=== PATIENT | male | born 1965 | race Caucasian/White ===

== ENCOUNTER 2017-03-03 17:45 | Observation (INO) | payer OTHER ==
[2017-03-03] MEDS ORDERED: ONDANSETRON *ODT* 4 MG TABLET SL ONE (18:26)
[2017-03-03] MEDS ORDERED: MECLIZINE HCL 25 MG TABLET (FP) PO ONE ×2 (18:26→20:07)
[2017-03-03] MEDS ORDERED: SODIUM CHLORIDE 1,000 ML IV STA (18:27)
[2017-03-03] MEDS ORDERED: MECLIZINE HCL 25 MG TABLET (FP) ONE ×2 (18:29→19:56)
[2017-03-03] MEDS ORDERED: ONDANSETRON *ODT* 4 MG TABLET ONE (18:29)
--- NOTE | 2017-03-03 18:30 | PDOC ---
History of Present Illness - General History Source: Patient, Family Exam Limitations: No Limitations - History of Present Illness Initial Comments: 03/03/17 18:43 The patient is a 52 year old male, with a significant past medical history of hypertension, who presents to the emergency department with, dizziness and nausea with multiple episodes of emesis beginning approx. one day ago. The patient reports that yesterday while driving he began to feel dizzy and nauseous. The patient reports vomiting 1x (non bloody, non bilious) and going to [facility] for evaluation of the continuing dizziness. The patient reports having a CAT scan, CXR and blood work done and states all results were normal. The patient reports being prescribed Meclizine at the time of discharge from the hospital with mild relief. The patient reports that today approx. 3 hours ago he took the Meclizine medication and became dizzy. The patient reports vomiting once more and states the nausea went away after vomiting. However, the dizziness is continuing. The patient reports the dizziness as a room spinning sensation. The patient reports his last meal (cereal) was around 3pm today prior to vomiting. He denies recent cold-like symptoms or hearing changes. He denies recent abdominal pain or cramping. He denies chest pain, palpitations, or blurry vision. He denies shortness of breath, He denies any recent fevers, chills, or headache. He denies any recent, diarrhea or constipation. Allergies: NKA Past surgical history: None reported. Social History: Nonsmoker. Occasional EtOH use. <CorderoTyrel - Last Filed: 03/03/17 18:52> - History of Present Illness Initial Comments: 03/03/17 18:33 Patient was sudden onset of labyrinthine symptoms last night while driving. Seen at another hospital. Complete blood work and CAT scan of the brain, as well as EKG and cardiac enzymes, were performed, which showed no abnormalities other than a mildly elevated blood sugar. His blood pressure was also not to moderately elevated at the time. Physical exam: Alert and oriented well-developed well-nourished no acute distress at rest. Vertigo and nausea easily induced by head movement or change of position. Afebrile, vital signs stable except for mildly elevated blood pressure. The patient is on blood pressure medication Head atraumatic. PERRLA 4 mm, fundi benign with sharp disc margins and good central venous pulsations. ENT clear Neck supple without bruit mass or nodes Chest clear. No wheezes rales or rhonchi. Full breath sounds bilaterally CV S1 and S2 distant without murmur rub or gallop pulses full and symmetric no JVD or edema no bruits Abdomen soft nontender without mass or organomegaly. Bowel sounds normal Extremities no CCE Skin clear, no rash, adequate turgor and wet mucous membranes Neurological C2 to 12 intact. Strength full and symmetric. No focal sensory or motor deficits. Gait is mildly impaired due to vertigo. As noted above, vertigo and nausea reducible by change of position or head movement. Impression: Labyrinthitis, acute Plan: To control the nausea with sublingual Zofran and other symptoms with meclizine. Observe and referred to ENT if no improvement. <Augustus Thorpe - Last Filed: 03/04/17 07:35> - General Chief Complaint: Nausea/Vomiting Stated Complaint: VOMITING, DIZZINESS Time Seen by Provider: 03/03/17 18:25 Past History <Tyrel Cordero - Last Filed: 03/03/17 18:52> - Past Medical History COPD: No HTN: Yes - Suicide/Smoking/Psychosocial Hx Smoking History: Never smoked <Augustus Thorpe - Last Filed: 03/04/17 07:35> - Past Medical History Allergies/Adverse Reactions: Allergies Allergy/AdvReac Type Severity Reaction Status Date / Time No Known Allergies Allergy Verified 03/03/17 17:57 Home Medications: Ambulatory Orders Losartan Potassium 100 mg PO DAILY 03/03/17 Meclizine HCl 25 mg PO ASDIR 03/03/17 Ondansetron [Zofran *Odt*] 8 mg SL TID PRN #20 od.tablet 03/03/17 Review of Systems - Review of Systems Comments:: 03/03/17 18:43 CONSTITUTIONAL: Absent: fever, no chills, no fatigue EYES: Absent: visual changes ENT: Absent: ear pain, no sore throat CARDIOVASCULAR: Absent: chest pain, no palpitations RESPIRATORY: Absent: cough, no SOB GI: Present: +Nausea. +Vomiting. Absent: abdominal pain, no constipation, no diarrhea GENITOURINARY: Absent: dysuria, no frequency, no hematuria MUSKULOSKELETAL: Absent: back pain, no arthralgia, no myalgia SKIN: Absent: rash NEURO: Present: +Dizziness. Absent: headache <Tyrel Cordero - Last Filed: 03/03/17 18:52> *Physical Exam - Vital Signs Last Vital Signs Temp Pulse Resp BP Pulse Ox 98.2 F 67 18 148/87 96 03/03/17 17:45 03/03/17 17:45 03/03/17 17:45 03/03/17 17:45 03/03/17 17:45 <Tyrel Cordero - Last Filed: 03/03/17 18:52> ED Treatment Course - Medications Given in the ED: ED Medications Discontinued Medications Generic Name Dose Route Start Last Admin Trade Name Freq PRN Reason Stop Dose Admin Ondansetron HCl 8 mg 03/03/17 18:26 03/03/17 18:30 Zofran Odt - SL 03/03/17 18:27 8 mg ONCE ONE Administration <Tyrel Cordero - Last Filed: 03/03/17 18:52> - LABORATORY CBC & Chemistry Diagram: 03/03/17 21:05 03/03/17 21:05 <Augustus Thorpe - Last Filed: 03/04/17 07:35> Medical Decision Making - Medical Decision Making The patient was treated with sublingual Zofran. Nausea subsided. Signed out to Dr. Gonzalez at 7 PM pending trial of meclizine and further medical evaluation and treatment. <Augustus Thorpe - Last Filed: 03/04/17 07:35> *DC/Admit/Observation/Transfer - Attestations Scribe Attestion: 03/03/17 18:44 Documentation prepared by Tyrel Cordero, acting as medical economics consultant for Augustus Thorpe MD. <Tyrel Cordero - Last Filed: 03/03/17 18:52> - Discharge Dispostion Admit: No <Augustus Thorpe - Last Filed: 03/04/17 07:35> Diagnosis at time of Disposition: Vertigo Acute labyrinthitis Qualifiers: Laterality: unspecified laterality Qualified Code(s): H83.09 - Labyrinthitis, unspecified ear Vomiting Qualifiers: Vomiting type: unspecified Vomiting Intractability: non-intractable Nausea presence: with nausea Qualified Code(s): R11.2 - Nausea with vomiting, unspecified - Discharge Dispostion Condition at time of disposition: Improved
--- NOTE | 2017-03-03 19:41 | PDOC ---
*Physical Exam - Vital Signs Last Vital Signs Temp Pulse Resp BP Pulse Ox 98.2 F 67 18 148/87 96 03/03/17 17:45 03/03/17 17:45 03/03/17 17:45 03/03/17 17:45 03/03/17 17:45 <Tyrel Cordero - Last Filed: 03/03/17 21:22> - Vital Signs Last Vital Signs Temp Pulse Resp BP Pulse Ox 98.2 F 67 18 148/87 96 03/03/17 17:45 03/03/17 17:45 03/03/17 17:45 03/03/17 17:45 03/03/17 17:45 <Van Sims I - Last Filed: 03/04/17 06:47> Heart Score/ECG Review #1 03/03/17 21:22 Normal sinus rhythm at 68 bpm No T wave inversions, no ST elevations Normal ECG <Tyrel Cordero Last Filed: 03/03/17 21:22> ED Treatment Course - LABORATORY CBC & Chemistry Diagram: 03/03/17 21:05 03/03/17 21:05 - Medications Given in the ED: ED Medications Discontinued Medications Generic Name Dose Route Start Last Admin Trade Name Freq PRN Reason Stop Dose Admin Sodium Chloride 1,000 mls @ 1,000 mls/hr 03/03/17 18:27 03/03/17 18:28 Normal Saline - IV 03/03/17 19:26 1,000 mls/hr ASDIR STA Administration Meclizine HCl 50 mg 03/03/17 18:26 03/03/17 19:02 Antivert - PO 03/03/17 18:27 50 mg ONCE ONE Administration Meclizine HCl 50 mg 03/03/17 20:07 03/03/17 20:00 Antivert - PO 03/03/17 20:08 50 mg ONCE ONE Administration Ondansetron HCl 8 mg 03/03/17 18:26 03/03/17 18:30 Zofran Odt - SL 03/03/17 18:27 8 mg ONCE ONE Administration <Tyrel Cordero - Last Filed: 03/03/17 21:22> - LABORATORY CBC & Chemistry Diagram: 03/03/17 21:05 03/03/17 21:05 - Medications Given in the ED: ED Medications Discontinued Medications Generic Name Dose Route Start Last Admin Trade Name Eryn PRN Reason Stop Dose Admin Sodium Chloride 1,000 mls @ 1,000 mls/hr 03/03/17 18:27 03/03/17 18:28 Normal Saline - IV 03/03/17 19:26 1,000 mls/hr ASDIR STA Administration Meclizine HCl 50 mg 03/03/17 18:26 03/03/17 19:02 Antivert - PO 03/03/17 18:27 50 mg ONCE ONE Administration Ondansetron HCl 8 mg 03/03/17 18:26 03/03/17 18:30 Zofran Odt - SL 03/03/17 18:27 8 mg ONCE ONE Administration <Van Sims I - Last Filed: 03/04/17 06:47> Progress Note - Progress Note Progress Note: Care of this patient was transferred to [facility] from Dr. Horn at 7 PM patient is a 52-year-old male who was diagnosed at another facility with labyrinthitis/ vertigo. Patient had a complete neurological workup including a CAT scan and a cardiac evaluation at the other facility. Patient comes in today because he is unable to tolerate his meclizine secondary to the vertigo and vomiting. Patient was given Zofran here and will be given a by mouth challenge and some meclizine. If symptoms have improved to the point patient can tolerate his medication patient will be discharged. 19:30 Reassessment patient was given the meclizine however when he sat up until he became vertiginous and nauseous again and did vomit it. Asked nursing to have patient in a position that he can be remedicated with some laxity and without having to move it well be tolerated and he can be discharged. 21:00 Reevaluation. Post 1 L of fluid, Zofran and 100 mg meclizine patient is minimally improved. Patient still very vertiginous and complains of nausea however has not vomited again. Patient will be admitted to an observation bed overnight. <Van Sims I - Last Filed: 03/04/17 06:47> *DC/Admit/Observation/Transfer <Tyrel Cordero - Last Filed: 03/03/17 21:22> - Discharge Dispostion Admit: Yes <Van Sims I - Last Filed: 03/04/17 06:47> Diagnosis at time of Disposition: Vertigo Acute labyrinthitis Qualifiers: Laterality: unspecified laterality Qualified Code(s): H83.09 - Labyrinthitis, unspecified ear Vomiting Qualifiers: Vomiting type: unspecified Vomiting Intractability: non-intractable Nausea presence: with nausea Qualified Code(s): R11.2 - Nausea with vomiting, unspecified - Discharge Dispostion Condition at time of disposition: Unchanged/Unknown
[2017-03-03 21:19] LABS: BASO % 0.4 % (0-2.0); EOS % 0.1 % (0-4.5); HEMATOCRIT 46.9 % (35.4-49); LYMPH % 12.7 % (8-40); MCH 31.1 pg (25.7-33.7); MCHC 34.1 g/dl (32.0-35.9); MEAN CELL VOLUME 91.3 fl (80-96); MEAN PLT VOLUME 8.6 fl (7.5-11.1); MONO % 2.6 % (3.8-10.2); NEUT % 84.2 % (42.8-82.8); PLATELET COUNT 174 K/MM3 (134-434); RBC 5.14 M/mm3 (4.00-5.60); RDW 12.4 % (11.9-15.9); WHITE BLOOD COUNT 6.6 K/mm3 (4.0-10.8)
[2017-03-03 21:28] LABS: ALBUMIN 4.4 g/dl (3.5-5.0); ALK PHOS 70 U/L (32-92); ANION GAP 7 (8-16); BILIRUBIN,TOTAL 1.2 mg/dl (0.2-1.0); BLOOD UREA NITROGEN 15 mg/dl (7-18); CALCIUM 9.1 mg/dl (8.4-10.2); CHLORIDE 103 mmol/L (98-107); CO2 22 mmol/L (22-28); CREATININE 0.8 mg/dl (0.6-1.3); GLUCOSE,RANDOM 255 mg/dl (74-106); POTASSIUM 4.2 mmol/L (3.5-5.1); SGOT/AST 25 U/L (10-42); SGPT/ALT 27 U/L (10-40); SODIUM 132 mmol/L (136-145)
--- NOTE | 2017-03-03 21:43 | HP ---
CHIEF COMPLAINT: Dizziness and Vomiting PCP: Dr. Aguila Guerrero HISTORY OF PRESENT ILLNESS: This is a 52 yo man with a PMHx of HTN, Who presents to the ED with dizziness and vomiting x today. Patient reports having the same symptoms yesterday and was seen in [facility]- Vertigo. Patient reports after his discharge he felt fine- baseline. Patient reports during the morning he had no symptoms, but in the afternoon he began to feel dizzy. He reports taking the Meclizine, then he began to have worsening symptoms. Patient denies recent fall or trauma. Patient denies blurred vision, LEES, numbness, slurred speech. Patient denies fever, chills, cough, SOB, CP, palpitations, AP, diarrhea, dysuria. ER course was notable for: (1) Na 132 (2) Glucose 255 (3) Recent Travel: None PAST MEDICAL HISTORY: HTN PAST SURGICAL HISTORY: None Social History: Smoking: never smoked Alcohol: none Drugs: none Family History: Non-Contributory Allergies No Known Allergies Allergy (Verified 03/03/17 17:57) HOME MEDICATIONS: Home Medications Medication Instructions Recorded Losartan Potassium 100 mg PO DAILY 03/03/17 Meclizine HCl 25 mg PO ASDIR 03/03/17 Ondansetron [Zofran *Odt*] 8 mg SL TID PRN #20 od.tablet 03/03/17 REVIEW OF SYSTEMS CONSTITUTIONAL: Absent: fever, chills, diaphoresis, generalized weakness, malaise, loss of appetite, weight change HEENT: Absent: rhinorrhea, nasal congestion, throat pain, throat swelling, difficulty swallowing, mouth swelling, ear pain, eye pain, visual changes CARDIOVASCULAR: Absent: chest pain, syncope, palpitations, irregular heart rate, lightheadedness , peripheral edema RESPIRATORY: Absent: cough, shortness of breath, dyspnea with exertion, orthopnea, wheezing, stridor, hemoptysis GASTROINTESTINAL: vomiting, constipation Absent: abdominal pain, abdominal distension, nausea, diarrhea, melena, hematochezia GENITOURINARY: Absent: dysuria, frequency, urgency, hesitancy, hematuria, flank pain, genital pain MUSCULOSKELETAL: Absent: myalgia, arthralgia, joint swelling, back pain, neck pain SKIN: Absent: rash, itching, pallor HEMATOLOGIC/IMMUNOLOGIC: Absent: easy bleeding, easy bruising, lymphadenopathy, frequent infections ENDOCRINE: Absent: unexplained weight gain, unexplained weight loss, heat intolerance, cold intolerance NEUROLOGIC: dizziness Absent: headache, focal weakness or paresthesias, unsteady gait, seizure, mental status changes, bladder or bowel incontinence PSYCHIATRIC: Absent: anxiety, depression, suicidal or homicidal ideation, hallucinations. PHYSICAL EXAMINATION Vital Signs - 24 hr 03/03/17 17:45 Temperature 98.2 F Pulse Rate 67 Respiratory 18 Rate Blood Pressure 148/87 O2 Sat by Pulse 96 Oximetry (%) GENERAL: Awake, alert, and fully oriented, in no acute distress. HEAD: Normal with no signs of trauma. EYES: Pupils equal, round and reactive to light, extraocular movements intact, sclera anicteric, conjunctiva clear. No lid lag. EARS, NOSE, THROAT: Ears normal, nares patent, oropharynx clear without exudates. Dry mucous membranes. NECK: Normal range of motion, supple without lymphadenopathy, JVD, or masses. LUNGS: Breath sounds equal, clear to auscultation bilaterally. No wheezes, and no crackles. No accessory muscle use. HEART: Regular rate and rhythm, normal S1 and S2 without murmur, rub or gallop. ABDOMEN: Soft, nontender, not distended, normoactive bowel sounds, no guarding, no rebound, no masses. No hepatomegaly or splenomegaly. MUSCULOSKELETAL: Normal range of motion at all joints. No bony deformities or tenderness. No CVA tenderness. UPPER EXTREMITIES: 2+ pulses, warm, well-perfused. No cyanosis. No clubbing. No peripheral edema. LOWER EXTREMITIES: 2+ pulses, warm, well-perfused. No calf tenderness. No peripheral edema. NEUROLOGICAL: Cranial nerves II-XII intact. Normal speech. Gait not observed. PSYCHIATRIC: Cooperative. Good eye contact. Appropriate mood and affect. SKIN: Warm, dry, normal turgor, no rashes or lesions noted, normal capillary refill. Laboratory Results - last 24 hr 03/03/17 03/03/17 21:05 21:05 WBC 6.6 RBC 5.14 Hgb 16.0 Hct 46.9 MCV 91.3 MCH 31.1 MCHC 34.1 RDW 12.4 Plt Count 174 MPV 8.6 Neutrophils % 84.2 H Lymphocytes % 12.7 Monocytes % 2.6 L Eosinophils % 0.1 Basophils % 0.4 Sodium 132 L Potassium 4.2 Chloride 103 Carbon Dioxide 22 Anion Gap 7 L BUN 15 Creatinine 0.8 Creat Clearance w eGFR > 60 Random Glucose 255 H Calcium 9.1 Total Bilirubin 1.2 H AST 25 ALT 27 Alkaline Phosphatase 70 Total Protein 7.0 Albumin 4.4 ASSESSMENT/PLAN: This is a 52 y/o man with a PMHx of HTN. Placed on Observation for Vertigo Neurology: Vertigo - CT Head-pending - Continue Meclizine - Appreciate Neurology Consult - Fall Precautions - Monitor vitals - Orthostatics - CBC, BMP in am Cardiology: Hypertension - Controlled - Monitor BP - Continue Losartan - Monitor renal function Endocrinology: Hyperglycemia - HgbA1c in am - Carb Controlled Diet - BMP in am F/E/N - PO Fluids as tolerated - Replete Na - Low Na, Carb Control Diet DVT Prophylaxis - OOB - SCDs Code Status: Full Code Dispo: Observation Problem List - Problem (1) Acute labyrinthitis Code(s): H83.09 - LABYRINTHITIS, UNSPECIFIED EAR Qualifiers: Laterality: unspecified laterality Qualified Code(s): H83.09 - Labyrinthitis, unspecified ear (2) Vertigo Code(s): R42 - DIZZINESS AND GIDDINESS (3) Vomiting Code(s): R11.10 - VOMITING, UNSPECIFIED Qualifiers: Vomiting type: unspecified Vomiting Intractability: non-intractable Nausea presence: with nausea Qualified Code(s): R11.2 - Nausea with vomiting, unspecified (4) HTN (hypertension) Code(s): I10 - ESSENTIAL (PRIMARY) HYPERTENSION (5) DVT prophylaxis Code(s): AIV3809 - Visit type - Emergency Visit Emergency Visit: Yes ED Registration Date: 03/03/17 Care time: The patient presented to the Emergency Department on the above date and was hospitalized for further evaluation of their emergent condition. - New Patient This patient is new to me today: Yes Date on this admission: 03/03/17 - Critical Care Critical Care patient: No
[2017-03-03] MEDS ORDERED: ONDANSETRON 4 MG/2 ML VIAL IVPUSH PRN (22:09)
[2017-03-03 22:46] VITALS: BMI 28.5
[2017-03-04] MEDS ORDERED: SODIUM CHLORIDE 1,000 ML IV SCH (00:15)
[2017-03-04 07:40] LABS: BASO % 1.1 % (0-2.0); EOS % 1.1 % (0-4.5); HEMATOCRIT 43.9 % (35.4-49); HEMOGLOBIN 14.9 GM/dl (11.7-16.9); LYMPH % 41.3 % (8-40); MEAN CELL VOLUME 91.3 fl (80-96); MONO % 7.2 % (3.8-10.2); NEUT % 49.3 % (42.8-82.8); PLATELET COUNT 157 K/MM3 (134-434); RBC 4.81 M/mm3 (4.00-5.60); RDW 12.5 % (11.9-15.9); WHITE BLOOD COUNT 5.8 K/mm3 (4.0-10.8)
[2017-03-04] MEDS ORDERED: MECLIZINE HCL 25 MG TABLET (FP) PO PRN (08:00)
[2017-03-04 08:29] LABS: ANION GAP 4 (8-16); BLOOD UREA NITROGEN 15 mg/dl (7-18); CALCIUM 9.3 mg/dl (8.4-10.2); CHLORIDE 108 mmol/L (98-107); CO2 24 mmol/L (22-28); CREATININE 0.8 mg/dl (0.6-1.3); GLUCOSE,RANDOM 165 mg/dl (74-106); SODIUM 136 mmol/L (136-145)
--- NOTE | 2017-03-04 13:17 | PN ---
Physical Exam: SUBJECTIVE: Patient seen and examined. No dizziness when laying still, experiences a "room-spinning" type of dizziness when changing position. [place] "drunk" when trying to walk to the bathroom this morning OBJECTIVE: Vital Signs Period Temp Pulse Resp BP Sys/Alfredo Pulse Ox Last 24 Hr 98.2 F-98.3 F 58-82 16-20 113-152/74-97 96-99 GENERAL: The patient is awake, alert, and fully oriented, in no acute distress. HEAD: Normal with no signs of trauma. EYES: PERRL, extraocular movements intact, sclera anicteric, conjunctiva clear. No ptosis. ENT: Ears normal, nares patent, oropharynx clear without exudates, moist mucous membranes. NECK: Trachea midline, full range of motion, supple. LUNGS: Breath sounds equal, clear to auscultation bilaterally, no wheezes, no crackles, no accessory muscle use. HEART: Regular rate and rhythm, S1, S2 without murmur, rub or gallop. ABDOMEN: Soft, nontender, nondistended, normoactive bowel sounds, no guarding, no rebound, no hepatosplenomegaly, no masses. EXTREMITIES: 2+ pulses, warm, well-perfused, no edema. NEUROLOGICAL: Cranial nerves II through XII grossly intact. Normal speech, gait not observed. PSYCH: Normal mood, normal affect. SKIN: Warm, dry, normal turgor, no rashes or lesions noted Laboratory Results - last 24 hr 03/03/17 03/03/17 03/04/17 21:05 21:05 07:32 WBC 6.6 5.8 RBC 5.14 4.81 Hgb 16.0 14.9 Hct 46.9 43.9 MCV 91.3 91.3 MCH 31.1 31.0 MCHC 34.1 34.0 RDW 12.4 12.5 Plt Count 174 157 MPV 8.6 8.0 Neutrophils % 84.2 H 49.3 D Lymphocytes % 12.7 41.3 H D Monocytes % 2.6 L 7.2 D Eosinophils % 0.1 1.1 D Basophils % 0.4 1.1 Sodium 132 L Potassium 4.2 Chloride 103 Carbon Dioxide 22 Anion Gap 7 L BUN 15 Creatinine 0.8 Creat Clearance w eGFR > 60 Random Glucose 255 H Calcium 9.1 Total Bilirubin 1.2 H AST 25 ALT 27 Alkaline Phosphatase 70 Total Protein 7.0 Albumin 4.4 03/04/17 07:32 WBC RBC Hgb Hct MCV MCH MCHC RDW Plt Count MPV Neutrophils % Lymphocytes % Monocytes % Eosinophils % Basophils % Sodium 136 Potassium 4.0 Chloride 108 H Carbon Dioxide 24 Anion Gap 4 L BUN 15 Creatinine 0.8 Creat Clearance w eGFR Random Glucose 165 H D Calcium 9.3 Total Bilirubin AST ALT Alkaline Phosphatase Total Protein Albumin Active Medications Generic Name Dose Route Start Last Admin Trade Name Freq PRN Reason Stop Dose Admin Sodium Chloride 1,000 mls @ 42 mls/hr 03/04/17 00:15 Normal Saline - IV ASDIR HAIM Meclizine HCl 25 mg 03/04/17 08:00 Antivert - PO TID PRN VERTIGO Ondansetron HCl 4 mg 03/03/17 22:09 Zofran Injection IVPUSH Q6H PRN NAUSEA AND/OR VOMITING ASSESSMENT/PLAN: 52 year old male placed in observation with vertigo-like symptoms. 1. Vertigo -CT head performed 03/02 at [facility] and negative per patient's report -May benefit from MRI brain; awaiting neurology evaluation -Continue Meclizine -Fall risk precautions 2. HTN -BP at goal -Continue Losartan -Obtain orthostatics 3. Hyperglycemia -HgbA1C -Diabetic diet 4. F/E/N -PO Fluids as tolerated -Hypokalemia, repleted -Low Na, Carb Control Diet 5. DVT Prophylaxis -OOB -SCDs Code Status: Full Code Dispo: Observation
--- NOTE | 2017-03-04 15:30 | CONSULT ---
Consult - text type - Consultation Consultation Note: Neurology History of Present Illness The patient is a 52 year old male, with a significant past medical history of hypertension, who presents to the emergency department with, dizziness and nausea with multiple episodes of emesis beginning approx. one day ago. The patient reported that while driving he began to feel dizzy and nauseous. The patient reported vomiting 1x (non bloody, non bilious) and going to [facility] for evaluation of the continuing dizziness. The patient reports having a CAT scan, CXR and blood work done and states all results were normal. The patient reports being prescribed Meclizine at the time of discharge from the hospital with mild relief. He presented to [facility] with recurrence of dizziness but reports feeling symptoms are much better. We discussed further imaging and patient in agreement to have MRI to check for CVA. He denies recent cold-like symptoms or hearing changes. He denies recent abdominal pain or cramping. He denies chest pain, palpitations, or blurry vision. He denies shortness of breath, He denies any recent fevers, chills, or headache. He denies any recent, diarrhea or constipation. Allergies: NKA Past surgical history: None reported. Social History: Nonsmoker. Occasional EtOH use. Past History - Past Medical History COPD: No HTN: Yes - Past Medical History Allergies/Adverse Reactions: Allergies Allergy/AdvReac Type Severity Reaction Status Date / Time No Known Allergies Allergy Verified 03/03/17 17:57 Home Medications: Ambulatory Orders Losartan Potassium 100 mg PO DAILY 03/03/17 Meclizine HCl 25 mg PO ASDIR 03/03/17 Ondansetron [Zofran *Odt*] 8 mg SL TID PRN #20 od.tablet 03/03/17 Review of Systems CONSTITUTIONAL: Absent: fever, no chills, no fatigue EYES: Absent: visual changes ENT: Absent: ear pain, no sore throat CARDIOVASCULAR: Absent: chest pain, no palpitations RESPIRATORY: Absent: cough, no SOB GI: Present: +Nausea. +Vomiting. Absent: abdominal pain, no constipation, no diarrhea GENITOURINARY: Absent: dysuria, no frequency, no hematuria MUSKULOSKELETAL: Absent: back pain, no arthralgia, no myalgia SKIN: Absent: rash NEURO: Present: +Dizziness. Absent: headache *Physical Exam Vital Signs Period Temp Pulse Resp BP Sys/Alfredo Pulse Ox Last 24 Hr 98.2 F-98.5 F 58-82 16-20 113-152/74-98 96-99 Awake, alert, and fully oriented, in no acute distress. HEAD: Normal with no signs of trauma. EYES: Pupils equal, round and reactive to light, extraocular movements intact, sclera anicteric, conjunctiva clear. No lid lag. EARS, NOSE, THROAT: Ears normal, nares patent, oropharynx clear without exudates. Dry mucous membranes. NECK: Normal range of motion, supple without lymphadenopathy, JVD, or masses. LUNGS: Breath sounds equal, clear to auscultation bilaterally. No wheezes, and no crackles. No accessory muscle use. HEART: Regular rate and rhythm, normal S1 and S2 without murmur, rub or gallop. ABDOMEN: Soft, nontender, not distended, normoactive bowel sounds, no guarding, no rebound, no masses. No hepatomegaly or splenomegaly. MUSCULOSKELETAL: Normal range of motion at all joints. No bony deformities or tenderness. No CVA tenderness. UPPER EXTREMITIES: 2+ pulses, warm, well-perfused. No cyanosis. No clubbing. No peripheral edema. LOWER EXTREMITIES: 2+ pulses, warm, well-perfused. No calf tenderness. No peripheral edema. NEUROLOGICAL: Cranial nerves II-XII intact. Normal speech. Gait not observed. PSYCHIATRIC: Cooperative. Good eye contact. Appropriate mood and affect. SKIN: Warm, dry, normal turgor, no rashes or lesions noted, normal capillary refill. CBCD WBC 5.8 K/mm3 (4.0-10.8) 03/04/17 07:32 RBC 4.81 M/mm3 (4.00-5.60) 03/04/17 07:32 Hgb 14.9 GM/dl (11.7-16.9) 03/04/17 07:32 Hct 43.9 % (35.4-49) 03/04/17 07:32 MCV 91.3 fl (80-96) 03/04/17 07:32 MCHC 34.0 g/dl (32.0-35.9) 03/04/17 07:32 RDW 12.5 % (11.9-15.9) 03/04/17 07:32 Plt Count 157 K/MM3 (134-434) 03/04/17 07:32 MPV 8.0 fl (7.5-11.1) 03/04/17 07:32 CMP Sodium 136 mmol/L (136-145) 03/04/17 07:32 Potassium 4.0 mmol/L (3.5-5.1) 03/04/17 07:32 Chloride 108 mmol/L (98-107) H 03/04/17 07:32 Carbon Dioxide 24 mmol/L (22-28) 03/04/17 07:32 Anion Gap 4 (8-16) L 03/04/17 07:32 BUN 15 mg/dl (7-18) 03/04/17 07:32 Creatinine 0.8 mg/dl (0.6-1.3) 03/04/17 07:32 Creat Clearance w eGFR > 60 (>60) 03/03/17 21:05 Calcium 9.3 mg/dl (8.4-10.2) 03/04/17 07:32 Total Bilirubin 1.2 mg/dl (0.2-1.0) H 03/03/17 21:05 AST 25 U/L (10-42) 03/03/17 21:05 ALT 27 U/L (10-40) 03/03/17 21:05 Alkaline Phosphatase 70 U/L (32-92) 03/03/17 21:05 Total Protein 7.0 g/dl (6.4-8.3) 03/03/17 21:05 Albumin 4.4 g/dl (3.5-5.0) 03/03/17 21:05 Plan: 52 year old male, with a significant past medical history of hypertension, who presents to the emergency department with, dizziness and nausea with multiple episodes of emesis beginning approx. one day ago. The patient reported that while driving he began to feel dizzy and nauseous. The patient reported vomiting 1x (non bloody, non bilious) and going to [facility] for evaluation of the continuing dizziness. The patient reports having a CAT scan, CXR and blood work done and states all results were normal. The patient reports being prescribed Meclizine at the time of discharge from the hospital with mild relief. He presented to [facility] with recurrence of dizziness but reports feeling symptoms are much better. We discussed further imaging and patient in agreement to have MRI to check for CVA. Imaging ordered. Discussed eply rms. Getting IV hydration, no sudden head movements. Fall precautions
[2017-03-04] MEDS ORDERED: LORazepam 2 MG/ML SDV VIAL ONE (16:13)
[2017-03-04] MEDS ORDERED: LORazepam 2 MG/ML SDV VIAL IVPUSH ONE (16:15)
[2017-03-05 08:42] LABS: BASO % 0.7 % (0-2.0); EOS % 1.8 % (0-4.5); HEMOGLOBIN 14.6 GM/dl (11.7-16.9); LYMPH % 44.4 % (8-40); MCH 30.9 pg (25.7-33.7); MCHC 33.8 g/dl (32.0-35.9); MEAN CELL VOLUME 91.4 fl (80-96); MEAN PLT VOLUME 8.5 fl (7.5-11.1); MONO % 5.9 % (3.8-10.2); NEUT % 47.2 % (42.8-82.8); PLATELET COUNT 153 K/MM3 (134-434); RBC 4.71 M/mm3 (4.00-5.60); RDW 12.3 % (11.9-15.9); WHITE BLOOD COUNT 5.1 K/mm3 (4.0-10.8)
[2017-03-05 08:48] LABS: ANION GAP 8 (8-16); BLOOD UREA NITROGEN 15 mg/dl (7-18); CALCIUM 8.6 mg/dl (8.4-10.2); CHLORIDE 104 mmol/L (98-107); CO2 25 mmol/L (22-28); CREATININE 0.7 mg/dl (0.6-1.3); GLUCOSE,RANDOM 135 mg/dl (74-106); POTASSIUM 3.7 mmol/L (3.5-5.1); SODIUM 137 mmol/L (136-145)
--- NOTE | 2017-03-05 10:32 | DS ---
Physical Exam: SUBJECTIVE: Patient seen and examined. Reports feeling much better. No dizziness at rest. Ambulatory with minimal symptoms. OBJECTIVE: Vital Signs Period Temp Pulse Resp BP Sys/Alfredo Pulse Ox Last 24 Hr 97.8 F-98.5 F 53-76 18-20 107-144/66-98 97-100 PHYSICAL EXAM GENERAL: The patient is awake, alert, and fully oriented, in no acute distress. HEAD: Normal with no signs of trauma. EYES: PERRL, extraocular movements intact, sclera anicteric, conjunctiva clear. ENT: Ears normal, nares patent, oropharynx clear without exudates, moist mucous membranes. NECK: Trachea midline, full range of motion, supple. LUNGS: Breath sounds equal, clear to auscultation bilaterally, no wheezes, no crackles, no accessory muscle use. HEART: Regular rate and rhythm, S1, S2 without murmur, rub or gallop. ABDOMEN: Soft, nontender, nondistended, normoactive bowel sounds, no guarding, no rebound, no hepatosplenomegaly, no masses. EXTREMITIES: 2+ pulses, warm, well-perfused, no edema. NEUROLOGICAL: Cranial nerves II through XII grossly intact. Normal speech. Gait steady. PSYCH: Normal mood, normal affect. SKIN: Warm, dry, normal turgor, no rashes or lesions noted. LABS Laboratory Results - last 24 hr 03/05/17 03/05/17 07:00 07:00 WBC 5.1 RBC 4.71 Hgb 14.6 Hct 43.0 MCV 91.4 MCH 30.9 MCHC 33.8 RDW 12.3 Plt Count 153 MPV 8.5 Neutrophils % 47.2 Lymphocytes % 44.4 H Monocytes % 5.9 Eosinophils % 1.8 Basophils % 0.7 Sodium 137 Potassium 3.7 Chloride 104 Carbon Dioxide 25 Anion Gap 8 BUN 15 Creatinine 0.7 Random Glucose 135 H Calcium 8.6 HOSPITAL COURSE: 52 yo man with HTN, placed in observation on 03/03 with vertiginous symptoms, one day after being discharged form [facility] with the same. Course was notable for: (1) Improvement with Meclizine (2) Glucose >200 with HgbA1C 8.0 (3) MRI brain: no acute process The patient is feeling better today and is able to ambulate. Followup instructions (including for elevated glucose/A1C) and return precautions reviewed. Date of Admission:03/03/17 Date of Discharge: 03/05/17 Minutes to complete discharge: 35 Discharge Summary Reason For Visit: VOMITING/VERTIGO/LABYRINTHITIS Current Active Problems Acute labyrinthitis (Acute) DVT prophylaxis (Acute) HTN (hypertension) (Acute) Vertigo (Acute) Vomiting (Acute) Condition: Improved - Instructions Diet, Activity, Other Instructions: -Rest and stay well-hydrated. -Take Meclizine as prescribed for vertigo. -Follow up with your primary care doctor as well as the ENT doctor (referral enclosed) next week. Please be sure to discuss your elevated blood sugar with your primary care doctor. -Return for weakness or numbness of the arms or legs, severe headache, vomiting/ inability to keep down fluids, change in speech or vision, or any other concerning symptoms. Referrals: Aguila Guerrero MD [Staff Physician] - 3 days Disposition: HOME - Home Medications Comprehensive Discharge Medication List: Ambulatory Orders Losartan Potassium 100 mg PO DAILY 03/03/17 Meclizine HCl 25 mg PO ASDIR 03/03/17 Ondansetron [Zofran *Odt*] 8 mg SL TID PRN #20 od.tablet 03/03/17 This patient is new to me today: No Emergency Visit: Yes ED Registration Date: 03/03/17 Care time: The patient presented to the Emergency Department on the above date and was hospitalized for further evaluation of their emergent condition. Critical Care patient: No - Discharge Referral Referred to [facility] Med P.C.: No
[2017-03-06 10:42] VITALS: BP 120/74; PULSE 74; TEMP 98
--- NOTE | 2017-03-06 16:57 | EKG ---
Test Reason : Blood Pressure : / mmHG Vent. Rate : 068 BPM Atrial Rate : 068 BPM P-R Int : 168 ms QRS Dur : 086 ms QT Int : 386 ms P-R-T Axes : 037 -04 004 degrees QTc Int : 410 ms POOR DATA QUALITY, INTERPRETATION MAY BE ADVERSELY AFFECTED NORMAL SINUS RHYTHM NORMAL ECG NO PREVIOUS ECGS AVAILABLE Confirmed by MITZI NOEL MD ([id number] on 03/06/2017 4:57:14 PM Referred By: MD ARREDONDO Confirmed By:MITZI NOEL MD
== END 2017-03-06 11:28 | disposition home or self-care (01) ==
LOC: FER 17:45 → FM/S 21:54
PROVIDERS: ADMIT Internal Medicine; ATTEND Nurse Practitioner Family
PROC: 3E033GC Introduction of Other Therapeutic Substance into Peripheral Vein, Percutaneous Approach (ICD-10-PCS; principal; 2017-03-03)
PROC: 3E0337Z Introduction of Electrolytic and Water Balance Substance into Peripheral Vein, Percutaneous Approach (ICD-10-PCS; 2017-03-03)
DX: H83.09 Labyrinthitis, unspecified ear (principal); R42 Dizziness and giddiness; R11.2 Nausea with vomiting, unspecified; R73.9 Hyperglycemia, unspecified
CPT/HCPCS: 36415; 70551-TC; 71045-TC; 80048; 80053; 83036; 85025; 93005; 99285-25; G0378